=== PATIENT | male | born 1965 | race Caucasian/White ===

== ENCOUNTER 2023-08-04 06:43 | Day surgery (SDC) | payer BC ==
[2023-08-04] MEDS ORDERED: Ondansetron PF 4 MG/2 ML Vial ONE ×2 (07:26→13:37)
[2023-08-04 07:41] LABS: #Monocytes 0.2 10x3/uL (0.0-1.1); #Neutrophils 2.5 10x3/uL (1.5-8.4); %Basophils 0.5 % (0.0-2.0); %Eosinophils 0.7 % (0.0-6.0); %Monocytes 4.4 % (0.0-10.0); %Neutrophils 58.2 % (40.0-75.0); Hematocrit 46.4 % (38.8-50.0); Mean Corpuscular HGB CONC 34.5 g/dL (32.0-36.0); Mean Corpuscular Hemoglobin 33.4 pg (27.0-33.0); Mean Corpuscular Volume 96.9 fl (81.2-95.1); Mean Platelet Volume 9.4 fl (7.4-10.4); Platelet Count 209 10x3/uL (150-450); RBC Distribution Width 12.6 % (11.5-14.5); Red Blood Cell (RBC) Count 4.79 10x6/uL (4.32-5.72); White Blood Cell (WBC) Count 4.3 10x3/uL (3.5-10.5)
[2023-08-04] MEDS ORDERED: Morphine 4 MG/ML VIAL ONE ×2 (07:55→09:07)
[2023-08-04] MEDS ORDERED: Ketorolac Tromethamine 30 MG (1 mL) VIAL ONE ×2 (07:55→13:37)
[2023-08-04 08:27] LABS: ALT (SGPT) 32 U/L (8-55); AST (SGOT) 19 U/L (5-34); Albumin 4.7 g/dL (3.5-5.0); Alkaline Phosphatase 65 U/L (40-110); Anion Gap 14 mmol/L (10-20); BUN (Urea Nitrogen) 14 mg/dL (8.4-25.7); Bilirubin, Total 0.5 mg/dL (0.2-1.2); Calc. Creatinine Clearance 0 mL/min (70-130); Calcium 9.1 mg/dL (7.8-10.44); Carbon Dioxide 27 mmol/L (22-29); Chloride 103 mmol/L (98-107); Estimated GFR 82; Globulin 2.6 g/dL (2.4-3.5); Glucose 158 mg/dL (70-105); Protein, Total 7.3 g/dL (6.0-8.3); Sodium 140 mmol/L (136-145)
[2023-08-04 08:39] LABS: Bilirubin Neg (Negative); Blood, Urine 250 (Negative); Glucose, Urine (Dipstick) Normal (Negative); Ketone, Urine Negative (Negative); Leukocyte Negative (Negative); Nitrite Negative (Negative); Protein, Urine (Dipstick) 100 mg/dl (Neg-Trace); Specific Gravity, Urine 1.025 (1.005-1.030); Urobilinogen Normal mg/dL (Less than 2)
[2023-08-04 08:41] LABS: Clarity Hazy (Clear)
[2023-08-04 08:43] LABS: Calcium Oxalate Crystals 1+ HPF (None Seen)
[2023-08-04 08:44] LABS: CAUTI Indications for Culture Pelvic or flank pain; RBC/HPF 21-50 HPF (0-3)
[2023-08-04 08:45] LABS: Bacteria/HPF Rare-Few HPF (None Seen)
[2023-08-04 08:47] LABS: Urine Culture Reflex No No
[2023-08-04] MEDS ORDERED: fentaNYL 50 mcg/mL 1 mL Vial ONE ×3 (09:57→13:37)
[2023-08-04] MEDS ORDERED: PROPOFOL 20 ML ONE (13:37)
[2023-08-04] MEDS ORDERED: Dexamethasone 20 MG/5 ML VIAL ONE (13:37)
[2023-08-04] MEDS ORDERED: Rocuronium Bromide 10 MG/ML (10ML VIAL) ONE (13:37)
[2023-08-04] MEDS ORDERED: SUGAMMADEX SODIUM 200 MG/2 ML VIAL ONE (13:37)
[2023-08-04] MEDS ORDERED: Midazolam HCl 2 mg/2 ml Vial ONE (13:37)
[2023-08-04] MEDS ORDERED: Iopamidol 30 ML ONE (13:41)
[2023-08-04] MEDS ORDERED: LevoFLOXacin D5W 500 mg (100 mL) BAG ONE (14:36)
== END 2023-08-04 16:32 | disposition home or self-care (01) ==
LOC: CSHERS 06:43 → CSHSDC 14:48
PROVIDERS: ATTEND Urology
PROC: 0T773DZ Dilation of Left Ureter with Intraluminal Device, Percutaneous Approach (ICD-10-PCS; principal; 2023-08-04)
DX: N13.2 Hydronephrosis with renal and ureteral calculous obstruction (principal); G47.33 Obstructive sleep apnea (adult) (pediatric); I10 Essential (primary) hypertension; E78.5 Hyperlipidemia, unspecified; Z98.890 Other specified postprocedural states
CPT/HCPCS: 74018; 76770; 80053; 81001; 85025; 96374; 96375; 96376; C1769; C2625; J1100; J1885; J1956; J2250; J2270; J2405; J2704; J3010; Q9967